=== PATIENT | male | born 1995 | race Caucasian/White ===

== ENCOUNTER 2020-04-30 07:57 | Emergency (ER) | payer SELFPAY ==
[~2020-04-30] VITALS: Ht 185.4 cm; Wt 77.6 kg
[~2020-04-30 07:57] MED LIST: ERYT.5TO RIGHTEYE; IBUP800 PO; Percocet 5-3251 EACH PO
== END 2020-04-30 08:21 | disposition home or self-care (01) ==
LOC: ER 07:57
DX: S54.02XA Injury of ulnar nerve at forearm level, left arm, initial encounter (principal); Z87.891 Personal history of nicotine dependence; X58.XXXA Exposure to other specified factors, initial encounter
CPT/HCPCS: 99283

== ENCOUNTER 2021-01-25 09:43 | Emergency (ER) | payer OTHER ==
[~2021-01-25] VITALS: Ht 185.4 cm; Wt 74.8 kg
== END 2021-01-25 10:22 | disposition home or self-care (01) ==
LOC: ER 09:43
DX: H00.024 Hordeolum internum left upper eyelid (principal)
CPT/HCPCS: 99282

== ENCOUNTER 2022-05-17 11:55 | Emergency (ER) | payer OTHER ==
[~2022-05-17] VITALS: Ht 185.4 cm; Wt 81.7 kg
== END 2022-05-17 12:35 | disposition home or self-care (01) ==
LOC: ER 11:55
DX: S50.12XA Contusion of left forearm, initial encounter (principal); Z87.891 Personal history of nicotine dependence; X58.XXXA Exposure to other specified factors, initial encounter
CPT/HCPCS: 99283

== ENCOUNTER 2022-05-23 13:04 | Emergency (ER) | payer OTHER ==
[~2022-05-23] VITALS: Ht 185.4 cm; Wt 83.9 kg
[2022-05-23] MEDS ORDERED: IBUP800 PO (14:51)
== END 2022-05-23 15:00 | disposition home or self-care (01) ==
LOC: ER 13:04
DX: M77.8 Other enthesopathies, not elsewhere classified (principal); F17.210 Nicotine dependence, cigarettes, uncomplicated
CPT/HCPCS: 73090; 99283-25